=== PATIENT | female | born 1995 | race Caucasian/White ===

== ENCOUNTER 2020-11-08 20:58 | Emergency (ER) | payer BC ==
[2020-11-08] MEDS ORDERED: methylPREDNISolone Sod Succ/PF 125 MG/2 ML VIAL ONE (21:09)
[2020-11-08] MEDS ORDERED: diphenhydrAMINE 50 MG/ML VIAL ONE (21:09)
[2020-11-08] MEDS ORDERED: Famotidine/PF 20 mg/2ml Vial ONE (21:09)
[2020-11-08 21:30] LABS: #Basophils 0.1 thou/uL (0.0-0.2); #Eosinphils 0.1 thou/uL (0.0-0.7); #Lymphocytes 4.5 thou/uL (1.20-3.40); #Monocytes 0.8 thou/uL (0.11-0.59); #Neutrophils 5.6 thou/uL (1.40-6.50); %Basophils 0.5 % (0.0-1.0); %Eosinophils 0.9 % (0.0-10.0); %Lymphocytes 40.8 % (21.0-51.0); %Monocytes 6.8 % (0.0-10.0); Hemoglobin 15.2 g/dL (12.0-16.0); Mean Corpuscular HGB CONC 34.1 g/dL (32.0-36.0); Mean Corpuscular Hemoglobin 30.2 pg (27.0-31.0); Mean Corpuscular Volume 88.5 fL (78.0-98.0); Platelet Count 318 thou/uL (130-400); RBC Distribution Width 11.7 % (11.5-14.5); Red Blood Cell (RBC) Count 5.03 mill/uL (4.20-5.40)
[2020-11-08 21:49] LABS: ALT (SGPT) 20 U/L (8-55); AST (SGOT) 18 U/L (5-34); Albumin 4.2 g/dL (3.5-5.0); Alkaline Phosphatase 116 U/L (40-110); Anion Gap 14 mmol/L (10-20); BUN (Urea Nitrogen) 13 mg/dL (7.0-18.7); Bilirubin, Total 0.2 mg/dL (0.2-1.2); Calc. Creatinine Clearance 0 mL/min (70-130); Calcium 9.6 mg/dL (7.8-10.44); Carbon Dioxide 25 mmol/L (22-29); Chloride 103 mmol/L (98-107); Glucose 147 mg/dL (70-105); Protein, Total 7.2 g/dL (6.0-8.3); Sodium 138 mmol/L (136-145)
== END 2020-11-09 00:07 | disposition home or self-care (01) ==
LOC: ERS 20:58
DX: L50.0 Allergic urticaria (principal); T78.1XXA Other adverse food reactions, not elsewhere classified, initial encounter
CPT/HCPCS: 36415; 80053; 84702; 85025; 99283; J1200; J2930; S0028